=== PATIENT | female | born 1960 | race Two or more races ===

== ENCOUNTER → 2018-07-29 | Outpatient (CLI) | payer BC ==
[2018-07-29 08:46] LABS: Urine WBC None Seen /hpf (0 - 5)
[2018-07-29 08:49] LABS: Basophils # (auto) 0 uL; Basophils % (auto) 0.5 % (0.0-2.0); Eosinophils # (auto) 0.1 uL; Eosinophils % (auto) 1.9 % (0.0-7.0); Hematocrit 45.6 % (36.0-46.0); Hemoglobin 14.9 g/dL (12.2-16.2); Lymphocytes # (auto) 1.4 uL; Lymphocytes % (auto) 39.9 % (10.0-50.0); Mean Corpuscular Hemoglobin 29.6 pg (28.0-32.0); Mean Corpuscular Hgb Conc. 32.8 g/dL (32.0-36.0); Mean Corpuscular Volume 90.4 fL (80.0-100.0); Monocytes # (auto) 0.3 uL; Monocytes % (auto) 7.2 % (0.0-12.0); Neutrophils # (auto) 1.8 uL; Neutrophils % (auto) 50.5 % (37.0-80.0); Nucleated Red Blood Cells % 0.1 %; Platelet Count (auto) 194 10^3/uL (140-450); Red Blood Cells 5.05 10^6/uL (4.0-5.20); Red Cell Distribution Width 12.5 % (11.8-14.3); White Blood Cell 3.6 10^3/uL (4.4-10.8)
[2018-07-29 08:57] LABS: Urine Bacteria FEW /hpf (None Seen); Urine Blood Negative /uL (Negative); Urine Specific Gravity 1.005 (1.001-1.035)
[2018-07-29 10:04] LABS: Albumin 4.3 g/dL (3.4-5.0); Calcium 9.1 mg/dL (8.5-10.1); Potassium 4.6 mmol/L (3.5-5.1)
[2018-07-29 10:08] LABS: Bilirubin, Total 0.5 mg/dL (0.2-1.0); Total Protein 7.5 g/dL (6.4-8.2)
== END | disposition home or self-care (01) ==
LOC: LAB 08:31
PROVIDERS: ATTEND Internal Medicine
DX: R10.9 Unspecified abdominal pain (principal); Z90.5 Acquired absence of kidney
CPT/HCPCS: 36415; 80053; 80061; 81001; 82150; 83690; 84439; 84443; 85025; 85652; 86677

== ENCOUNTER → 2018-12-29 | Outpatient (CLI) | payer BC ==
[2018-12-29 13:13] LABS: Basophils # (auto) 0 uL; Basophils % (auto) 0.8 % (0.0-2.0); Eosinophils # (auto) 0.1 uL; Eosinophils % (auto) 1.8 % (0.0-7.0); Hematocrit 43.5 % (36.0-46.0); Hemoglobin 14.6 g/dL (12.2-16.2); Lymphocytes # (auto) 1.7 uL; Lymphocytes % (auto) 35.9 % (10.0-50.0); Mean Corpuscular Hemoglobin 30.2 pg (28.0-32.0); Mean Corpuscular Hgb Conc. 33.6 g/dL (32.0-36.0); Mean Corpuscular Volume 89.8 fL (80.0-100.0); Monocytes # (auto) 0.3 uL; Monocytes % (auto) 6.5 % (0.0-12.0); Neutrophils # (auto) 2.6 uL; Nucleated Red Blood Cells % 0.2 %; Platelet Count (auto) 210 10^3/uL (140-450); Red Blood Cells 4.85 10^6/uL (4.0-5.20); Red Cell Distribution Width 12.8 % (11.8-14.3); White Blood Cell 4.7 10^3/uL (4.4-10.8)
[2018-12-29 13:33] LABS: Albumin 4.2 g/dL (3.4-5.0); Calcium 9.3 mg/dL (8.5-10.1); Potassium 4.2 mmol/L (3.5-5.1); Uric Acid 5.9 mg/dL (2.6-6.0)
[2018-12-29 13:35] LABS: BUN/Creatinine Ratio 26.7; Bilirubin, Total 0.4 mg/dL (0.2-1.0); Total Protein 7.5 g/dL (6.4-8.2)
== END | disposition home or self-care (01) ==
LOC: LAB 12:32
PROVIDERS: ATTEND Internal Medicine
DX: D72.819 Decreased white blood cell count, unspecified (principal); N18.3 Chronic kidney disease, stage 3 (moderate); R89.9 Unspecified abnormal finding in specimens from other organs, systems and tissues
CPT/HCPCS: 36415; 80053; 82784; 83970; 84550; 85025; 86225; 86235; 86334

== ENCOUNTER → 2019-10-18 | Outpatient (CLI) | payer BC ==
[2019-10-18 11:45] LABS: Urine WBC None Seen /hpf (0 - 5)
[2019-10-18 11:52] LABS: Basophils # (auto) 0 10 ^3/uL (0-0.2); Basophils % (auto) 0.4 % (0.0-2.0); Eosinophils # (auto) 0.1 10 ^3/uL (0-0.8); Eosinophils % (auto) 1.4 % (0.0-7.0); Hematocrit 40.9 % (36.0-46.0); Hemoglobin 14.2 g/dL (12.2-16.2); Lymphocytes # (auto) 1.4 10 ^3/uL (0.4-5.4); Mean Corpuscular Hemoglobin 30.7 pg (28.0-32.0); Mean Corpuscular Hgb Conc. 34.7 g/dL (32.0-36.0); Mean Corpuscular Volume 88.6 fL (80.0-100.0); Monocytes # (auto) 0.3 10 ^3/uL (0-1.3); Monocytes % (auto) 7.5 % (0.0-12.0); Neutrophils # (auto) 1.9 10 ^3/uL (1.6-8.6); Neutrophils % (auto) 51.7 % (37.0-80.0); Platelet Count (auto) 167 10^3/uL (140-450); Red Blood Cells 4.62 10^6/uL (4.0-5.20); Red Cell Distribution Width 12.9 % (11.8-14.3); White Blood Cell 3.6 10^3/uL (4.4-10.8)
[2019-10-18 12:00] LABS: Urine Bacteria NONE SEEN /hpf (None Seen); Urine Blood Negative /uL (Negative); Urine Specific Gravity 1.009 (1.001-1.035)
[2019-10-18 12:23] LABS: Potassium 4.2 mmol/L (3.5-5.1)
[2019-10-18 12:30] LABS: BUN/Creatinine Ratio 16.5; Bilirubin, Total 0.6 mg/dL (0.2-1.0); Total Protein 7.5 g/dL (6.4-8.2); Uric Acid 4.7 mg/dL (2.6-6.0)
== END | disposition home or self-care (01) ==
LOC: LAB 11:12
PROVIDERS: ATTEND Internal Medicine
DX: R10.32 Left lower quadrant pain (principal); N18.3 Chronic kidney disease, stage 3 (moderate); M35.01 Sjogren syndrome with keratoconjunctivitis; Z90.5 Acquired absence of kidney
CPT/HCPCS: 36415; 80053; 80061; 81001; 82043; 82150; 83690; 83970; 84439; 84443; 84550; 85025; 85652

== ENCOUNTER → 2020-07-04 | Outpatient (CLI) | payer BC | END | disposition home or self-care (01) | LOC: LAB 15:13 | PROVIDERS: ATTEND Physician Assistant | DX: Z20.828 Contact with and (suspected) exposure to other viral communicable diseases (principal) ==

== ENCOUNTER → 2021-01-16 | Outpatient (CLI) | payer BC ==
[2021-01-16 09:59] LABS: Basophils # (auto) 0 10 ^3/uL (0-0.2); Basophils % (auto) 0.5 % (0.0-2.0); Eosinophils # (auto) 0.1 10 ^3/uL (0-0.8); Hemoglobin 14.1 g/dL (12.2-16.2); Lymphocytes # (auto) 1.4 10 ^3/uL (0.4-5.4); Lymphocytes % (auto) 40.3 % (10.0-50.0); Mean Corpuscular Hemoglobin 30.7 pg (28.0-32.0); Mean Corpuscular Hgb Conc. 34.5 g/dL (32.0-36.0); Mean Corpuscular Volume 89.1 fL (80.0-100.0); Monocytes # (auto) 0.3 10 ^3/uL (0-1.3); Monocytes % (auto) 7.9 % (0.0-12.0); Neutrophils # (auto) 1.7 10 ^3/uL (1.6-8.6); Neutrophils % (auto) 49.3 % (37.0-80.0); Platelet Count (auto) 202 10^3/uL (140-450); Red Cell Distribution Width 13.1 % (11.8-14.3); White Blood Cell 3.4 10^3/uL (4.4-10.8)
[2021-01-16 10:08] LABS: Urine Bacteria NONE SEEN /hpf (None Seen); Urine Blood Negative /uL (Negative); Urine Specific Gravity 1.014 (1.001-1.035); Urine WBC <1 /hpf (0 - 5)
[2021-01-16 10:39] LABS: Potassium 4.2 mmol/L (3.5-5.1)
[2021-01-16 10:56] LABS: Albumin 4.1 g/dL (3.4-5.0); BUN/Creatinine Ratio 21.6; Bilirubin, Total 0.8 mg/dL (0.2-1.0); Calcium 9.2 mg/dL (8.5-10.1); Total Protein 7.2 g/dL (6.4-8.2); Uric Acid 5.4 mg/dL (2.6-6.0)
== END | disposition home or self-care (01) ==
LOC: LAB 09:21
PROVIDERS: ATTEND Internal Medicine
DX: N18.30 Chronic kidney disease, stage 3 unspecified (principal); R06.00 Dyspnea, unspecified
CPT/HCPCS: 36415; 80053; 80061; 81001; 82043; 82785; 83970; 84439; 84443; 84550; 85025; 85379; 85652

== ENCOUNTER → 2021-02-21 | Outpatient (CLI) | payer BC ==
[2021-02-21 12:26] LABS: Basophils # (auto) 0 10 ^3/uL (0-0.2); Basophils % (auto) 0.4 % (0.0-2.0); Eosinophils # (auto) 0.1 10 ^3/uL (0-0.8); Hematocrit 41.9 % (36.0-46.0); Hemoglobin 14.6 g/dL (12.2-16.2); Lymphocytes # (auto) 1.8 10 ^3/uL (0.4-5.4); Lymphocytes % (auto) 39.8 % (10.0-50.0); Mean Corpuscular Hemoglobin 31.1 pg (28.0-32.0); Mean Corpuscular Hgb Conc. 34.9 g/dL (32.0-36.0); Mean Corpuscular Volume 89.2 fL (80.0-100.0); Monocytes # (auto) 0.4 10 ^3/uL (0-1.3); Monocytes % (auto) 8.8 % (0.0-12.0); Neutrophils # (auto) 2.2 10 ^3/uL (1.6-8.6); Nucleated Red Blood Cells % 0.2 %; Red Blood Cells 4.69 10^6/uL (4.0-5.20); Red Cell Distribution Width 12.8 % (11.8-14.3); White Blood Cell 4.4 10^3/uL (4.4-10.8)
== END | disposition home or self-care (01) ==
LOC: LAB 11:37
PROVIDERS: ATTEND Internal Medicine
DX: D72.819 Decreased white blood cell count, unspecified (principal)
CPT/HCPCS: 36415; 82607; 83615; 85025

== ENCOUNTER 2021-03-21 12:47 | Day surgery (SDC) | payer BC ==
[2021-03-16 10:30] LABS: Basophils # (auto) 0 10 ^3/uL (0-0.2); Basophils % (auto) 0.4 % (0.0-2.0); Eosinophils # (auto) 0.1 10 ^3/uL (0-0.8); Eosinophils % (auto) 1.9 % (0.0-7.0); Hematocrit 42.2 % (36.0-46.0); Hemoglobin 14.3 g/dL (12.2-16.2); Lymphocytes # (auto) 1.4 10 ^3/uL (0.4-5.4); Lymphocytes % (auto) 38.2 % (10.0-50.0); Mean Corpuscular Hemoglobin 30.4 pg (28.0-32.0); Mean Corpuscular Hgb Conc. 33.9 g/dL (32.0-36.0); Mean Corpuscular Volume 89.8 fL (80.0-100.0); Monocytes # (auto) 0.3 10 ^3/uL (0-1.3); Monocytes % (auto) 7.3 % (0.0-12.0); Neutrophils # (auto) 1.9 10 ^3/uL (1.6-8.6); Neutrophils % (auto) 52.2 % (37.0-80.0); Red Cell Distribution Width 12.8 % (11.8-14.3); White Blood Cell 3.6 10^3/uL (4.4-10.8)
[2021-03-16 11:10] LABS: Calcium 9.3 mg/dL (8.5-10.1); Potassium 4.7 mmol/L (3.5-5.1)
[2021-03-16 11:17] LABS: Albumin 3.9 g/dL (3.4-5.0); BUN/Creatinine Ratio 21.9; Bilirubin, Total 0.6 mg/dL (0.2-1.0); Total Protein 7.5 g/dL (6.4-8.2)
[~2021-03-21] VITALS: Ht 172.7 cm; Wt 65.8 kg
[~2021-03-21 12:47] MED LIST: MULT-1018 PO
[2021-03-21] MEDS ORDERED: diphenhdrAMINE HCL 50 MG/1 ML VL ONE (12:58)
[2021-03-21] MEDS: MIDAZOLAM HCL 5 MG/ML-1ML VIAL ONE ×2 (14:57→15:00)
[2021-03-21] MEDS: fentaNYL CITRATE 100 MCG/2 ML VL ONE ×2 (14:57→15:00)
[2021-03-21 16:05] VITALS: BP 150/86
== END 2021-03-21 16:20 | disposition home or self-care (01) ==
LOC: GI 12:47
PROVIDERS: ATTEND Internal Medicine Gastroenterology
DX: Z12.11 Encounter for screening for malignant neoplasm of colon (principal); K64.8 Other hemorrhoids; Z79.899 Other long term (current) drug therapy; Z98.890 Other specified postprocedural states; Z20.822 Contact with and (suspected) exposure to COVID-19
CPT/HCPCS: 36415; 45378; 80053; 85025; J1200; J2250; J3010; J7030; U0003; 99152

== ENCOUNTER → 2022-02-11 | Outpatient (CLI) | payer BC ==
[2022-02-11 13:44] LABS: Basophils # (auto) 0 10 ^3/uL (0-0.2); Basophils % (auto) 0.4 % (0.0-2.0); Eosinophils # (auto) 0.1 10 ^3/uL (0-0.8); Eosinophils % (auto) 1.9 % (0.0-7.0); Hematocrit 40.3 % (36.0-46.0); Lymphocytes # (auto) 1.5 10 ^3/uL (0.4-5.4); Lymphocytes % (auto) 31.1 % (10.0-50.0); Mean Corpuscular Hemoglobin 28.9 pg (28.0-32.0); Mean Corpuscular Hgb Conc. 32.4 g/dL (32.0-36.0); Mean Corpuscular Volume 89.1 fL (80.0-100.0); Monocytes # (auto) 0.4 10 ^3/uL (0-1.3); Monocytes % (auto) 7.2 % (0.0-12.0); Neutrophils # (auto) 2.9 10 ^3/uL (1.6-8.6); Neutrophils % (auto) 59.4 % (37.0-80.0); Nucleated Red Blood Cells % 0.1 %; Red Blood Cells 4.52 10^6/uL (4.0-5.20); Red Cell Distribution Width 12.7 % (11.8-14.3)
[2022-02-11 13:49] LABS: Urine Bacteria FEW /hpf (None Seen); Urine Blood Negative /uL (Negative); Urine Specific Gravity 1.005 (1.001-1.035); Urine WBC <1 /hpf (0 - 5)
[2022-02-11 14:08] LABS: Calcium 9.5 mg/dL (8.5-10.1); Uric Acid 4.8 mg/dL (2.6-6.0)
[2022-02-11 14:14] LABS: Bilirubin, Total 0.6 mg/dL (0.2-1.0); Total Protein 7.4 g/dL (6.4-8.2)
== END | disposition home or self-care (01) ==
LOC: LAB 13:06
PROVIDERS: ATTEND Internal Medicine
DX: Z90.5 Acquired absence of kidney (principal); N18.30 Chronic kidney disease, stage 3 unspecified; M35.00 Sjogren syndrome, unspecified
CPT/HCPCS: 36415; 80053; 80061; 81001; 82043; 84439; 84443; 84550; 85025; 85652